=== PATIENT | male | born 1995 | race Caucasian/White ===

== ENCOUNTER 2023-03-25 11:47 | Emergency (ER) | payer BC ==
[2023-03-25] MEDS ORDERED: Sodium Chloride 0.9% 10 ML Syringe FLUSH PRN (12:13)
== END 2023-03-25 13:12 | disposition home or self-care (01) ==
LOC: DL.ED 11:47
DX: S43.101A Unspecified dislocation of right acromioclavicular joint, initial encounter (principal); W00.0XXA Fall on same level due to ice and snow, initial encounter
CPT/HCPCS: 73030-RT; 99282; 99283